=== PATIENT | male | born 1970 | race Caucasian/White ===

== ENCOUNTER 2024-03-09 10:54 | Day surgery (SDC) | payer BC ==
[2024-03-03 14:32] VITALS: BMI 31.8
[2024-03-09 11:21] VITALS: TEMP 97.1
[2024-03-09] MEDS: LACTATED RINGERS 1,000 ML IV SCH (11:21)
[2024-03-09] MEDS: IV FLUID CONTINUATION 1,000 ML IV ONE (11:21)
[2024-03-09] MEDS ORDERED: PROPOFOL 10 MG/ML 20 ML VIAL IV ONE (12:45)
--- NOTE | 2024-03-09 12:50 | P.GSHP ---
History of Present Illness H&P Date: 03/09/24 Chief Complaint: Screening colonoscopy Is a 53-year-old male presents today for screening colonoscopy. Patient denies any significant GI complaints. Past Medical History Past Medical History: Hyperlipidemia, Hypertension History of Any Multi-Drug Resistant Organisms: None Reported Past Surgical History: Orthopedic Surgery Additional Past Surgical History / Comment(s): foot surgery cyst , wrist sx right Past Anesthesia/Blood Transfusion Reactions: No Reported Reaction Smoking Status: Never smoker Medications and Allergies Home Medications Medication Instructions Recorded Confirmed Type Atorvastatin [Lipitor] 20 mg PO DAILY 03/03/24 03/09/24 History lisinopriL [Prinivil] 10 mg PO DAILY 03/03/24 03/09/24 History Allergies Allergy/AdvReac Type Severity Reaction Status Date / Time No Known Allergies Allergy Verified 03/09/24 11:06 Surgical - Exam Vital Signs Temp Pulse Resp BP Pulse Ox 97.1 F L 68 18 149/83 98 03/09/24 11:19 03/09/24 11:19 03/09/24 11:19 03/09/24 11:19 03/09/24 11:19 - General well developed, well nourished, no distress - Eyes PERRL - ENT normal pinna, normal nares - Neck no masses - Respiratory normal expansion - Cardiovascular Rhythm: regular - Abdomen Abdomen: soft, non tender Assessment and Plan Assessment: Will perform screening colonoscopy
--- NOTE | 2024-03-09 13:02 | P.OP ---
Date of Procedure: 03/09/24 Preoperative Diagnosis: Screening colonoscopy Postoperative Diagnosis: Screening colonoscopy Procedure(s) Performed: Normal colon Anesthesia: MAC Surgeon: Cayetano Fountain Pathology: none sent Condition: stable Disposition: PACU Description of Procedure: PROCEDURE: The patient was placed on the endoscopy table in the lateral position. Digital rectal examination was performed which revealed no abnormalities. The prostate was symmetrical without nodules. Flexible colonoscope was then placed in the patient's anus and passed throughout the entire colon. The ileocecal valve was visualized. The cecum, ascending, transverse, descending and sigmoid colon were normal. The rectum was normal as well. There were no masses, polyps or diverticula noted in the entire colon. SUMMARY OF FINDINGS: Normal colonoscopy.
[2024-03-09] MEDS: IV FLUID CONTINUATION 900 ML IV ONE ×2 (13:08→13:50)
[2024-03-09 13:11] VITALS: PULSE 66
[2024-03-09 13:45] VITALS: BP 122/76; RESP 18
== END 2024-03-09 14:20 | disposition home or self-care (01) ==
LOC: ORWHC2ENDO 10:54
PROVIDERS: ATTEND Surgery
DX: Z12.11 Encounter for screening for malignant neoplasm of colon (principal); I10 Essential (primary) hypertension; E78.5 Hyperlipidemia, unspecified; Z79.899 Other long term (current) drug therapy
CPT/HCPCS: 45378